=== PATIENT | male | born 1985 | race Caucasian/White ===

== ENCOUNTER 2023-12-08 09:27 | Emergency (ER) | payer SELFPAY ==
[2023-12-08 09:33] VITALS: BP 170/97; PULSE 76; TEMP 37; O2SAT 97; BMI 29.6
--- NOTE | 2023-12-08 09:59 | ED.GENADUL1 ---
HPI HPI - General Adult General Chief complaint: Abdominal Pain Stated complaint: ABDOMINAL PAIN/ DIZZINESS Time Seen by Provider: 12/08/23 09:32 Source: patient Mode of arrival: walk-in Limitations: no limitations History of Present Illness HPI narrative: Patient presents to ED complaining of mild abdominal pain Nausea vomiting and diarrhea. He states he lives at a homeless long-term and the cook was recently fired. He states the cook did not cook well and 2 days ago he ate raw chicken. He states ever since then he has had some abdominal pain diarrhea and not feeling well. 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 Denies suicidal ideation. He does have a sunburn because he states he is not allowed in the long-term during the day. Alert o x 3. No acute distress. No history of abdominal surgeries. Related Data Previous Rx's ?Medication ?Instructions ?Recorded ciprofloxacin HCl 500 mg tablet 500 mg PO BID 3 days #6 tabs 12/08/23 (Cipro) Allergies Allergy/AdvReac Type Severity Reaction Status Date / Time oxycodone AdvReac Intermediate Rash Verified 12/08/23 09:32 Opioid HPI Opioid Management Most Recent Opioid Data: Last Pain Scale 5 12/08/23 10:31 Last MAR Pain Assessment 12/08/23 10:31 Review of Systems ROS Status of ROS 10 or more systems reviewed and unremarkable except as noted in history and below Exam Narrative Exam Narrative: Time Seen: [] Vital Signs: [Per nurse's notes.] General: [Alert] Skin: [Warm, dry, no rash.] Head: [Normocephalic, atraumatic.] Neck: [Supple, trachea midline.] Eye: [Pupils are equal, round and reactive to light, extraocular movements are intact, normal conjunctiva.] Ears, nose, mouth and throat: oral mucosa moist. Cardiovascular: [Regular rate and rhythm, no murmur.] Respiratory: [Lungs are clear to auscultation, respirations are non-labored, breath sounds are equal.] Chest wall: [No tenderness, no deformity.] Gastrointestinal: [Soft, Mild epigastric tenderness, non distended, normal bowel sounds.] MSK: 5 out of 5 muscle strength x 4 extremities no calf pain or edema Lymphatics: [No lymphadenopathy.] Psychiatric: [Cooperative, appropriate mood & affect.] Neurological: [Alert and oriented to person, place, time, and situation, no focal neurological deficit observed.] Constitutional Vital Signs, click to edit/add: Last Vital Signs Temp 98.6 F 12/08/23 09:33 Pulse 88 12/08/23 12:05 Resp 16 12/08/23 12:05 BP 163/91 H 12/08/23 12:05 Pulse Ox 99 12/08/23 12:05 O2 Del Method Room Air 12/08/23 12:05 Course Vital Signs Vital signs: Vital Signs Temperature 98.6 F 12/08/23 09:33 Pulse Rate 76 12/08/23 09:33 Respiratory Rate 16 12/08/23 09:33 Blood Pressure 170/97 H 12/08/23 09:33 Pulse Oximetry 97 12/08/23 09:33 Oxygen Delivery Method Room Air 12/08/23 09:33 Temperature 98.6 F 12/08/23 09:33 Pulse Rate 88 12/08/23 12:05 Respiratory Rate 16 12/08/23 12:05 Blood Pressure 163/91 H 12/08/23 12:05 Pulse Oximetry 99 12/08/23 12:05 Oxygen Delivery Method Room Air 12/08/23 12:05 Medical Decision Making MDM Narrative Medical decision making narrative: Patient's labs are negative for acute and a slightly elevated white blood cell count. Patient declined a CAT scan abdomen pelvis. His abdomen is soft and only mildly tender I think this is appropriate for now. Given the fact that he had possibly undercooked chicken I will place him on 3 days worth of Cipro for possible infection. Most likely a gastroenteritis. Return to ED if worsening symptoms. Patient expresses understanding of care plan Differential Diagnosis Differential Diagnosis: Gastroenteritis, food poisoning, pancreatitis, electrolyte abnormality Medical Records Medical records reviewed: Yes I reviewed the patient's medical records Lab Data Lab results reviewed: Yes I reviewed the patient's lab results Labs: Lab Results 12/08/23 12/08/23 Range/Units 10:18 11:24 WBC 14.5 H (4.0-11.0) 10^3/uL RBC 4.85 (4.70-6.10) 10^6/uL Hgb 15.4 (14.0-18.0) g/dL Hct 46.2 (42.0-54.0) % MCV 95.3 H (80.0-94.0) fL MCH 31.8 (25.9-34.0) pg MCHC 33.3 (29.9-35.2) g/dL RDW 12.9 (11.0-15.0) % Plt Count 192 (150-450) 10^3/uL MPV 12.8 (9.5-13.5) fL Neut % (Auto) 81.5 H (43.0-75.0) % Lymph % (Auto) 11.3 L (20.5-60.0) % [place] % (Auto) 5.9 (1.7-12.0) % Eos % (Auto) 0.5 L (0.9-7.0) % Baso % (Auto) 0.5 (0.2-2.0) % Neut # (Auto) 11.8 H (1.4-6.5) 10^3/uL Lymph # (Auto) 1.6 (1.2-3.8) 10^3/uL [place] # (Auto) 0.9 H (0.3-0.8) 10^3/uL Eos # (Auto) 0.1 (0.0-0.7) 10^3/uL Baso # (Auto) 0.1 (0.0-0.1) 10^3/uL Abs Immat Gran (auto) 0.04 H (0.00-0.03) 10^3/uL Imm/Tot Granulo (auto) 0.3 (0.0-0.5) % Sodium 138 (136-145) mmol/L Potassium 4.0 (3.5-5.1) mmol/L Chloride 103 (98-107) mmol/L Carbon Dioxide 29.5 (21.0-32.0) mmol/L Anion Gap 9.5 BUN 10.0 (7.0-18.0) mg/dL Creatinine 0.97 (0.70-1.30) mg/dL Est GFR ( Amer) >60 (>=60) Est GFR (Non-Af Amer) >60 (>=60) BUN/Creatinine Ratio 10.3 Glucose 98 (74-106) mg/dL Calcium 9.2 (8.5-10.1) mg/dL Total Bilirubin 0.5 (0.2-1.0) mg/dL AST 24 (15-37) U/L ALT 48 (16-63) U/L Alkaline Phosphatase 69 (46-116) U/L Total Protein 7.3 (6.4-8.2) g/dL Albumin 3.6 (3.4-5.0) g/dL Globulin 3.7 g/dL Albumin/Globulin Ratio 1.0 Lipase 43.0 (16.0-77.0) U/L Urine Color Yellow (YELLOW) Urine Clarity Clear (CLEAR) Urine pH 6.5 (5.0-9.0) Ur Specific [place] 1.020 (1.005-1.025) Urine Protein Negative (NEG/TRACE) mg/dL Urine Glucose (UA) Negative (NEGATIVE) mg/dL Urine Ketones Negative (NEGATIVE) mg/dL Urine Occult Blood Negative (NEGATIVE) Urine Nitrite Negative (NEGATIVE) Urine Bilirubin Negative (NEGATIVE) Urine Urobilinogen 0.2 (0.2-1.0) EU/dL Ur Leukocyte Esterase Negative (NEGATIVE) Discharge Plan Discharge Stand Alone Forms: Portal Instructions Chief Complaint: Abdominal Pain Clinical Impression: Gastroenteritis Patient Disposition: Home, Self-Care Time of Disposition Decision: 11:51 Condition: Good Mode of Transportation: Private Vehicle Prescriptions / Home Meds: New ciprofloxacin HCl [Cipro] 500 mg tablet 500 mg PO BID 3 Days Qty: 6 0RF Print Language: Citizen [place] Instructions: Gastroenteritis (ED) Referrals: Physician,Non-Staff, MD [Primary Care Provider] - 1 week Discharge Date/Time: 12/08/23 12:06
[2023-12-08] MEDS: ONDANSETRON PF 4 MG/2 ML VIAL IV (10:21)
[2023-12-08] MEDS: 0.9 % SODIUM CHLORIDE 1,000 ML 999 ML IV (10:21)
[2023-12-08 10:30] LABS: Basophils Absolute Auto 0.1 10^3/uL (0.0-0.1); Basophils Percent Auto 0.5 % (0.2-2.0); Eosinophils Absolute Auto 0.1 10^3/uL (0.0-0.7); Eosinophils Percent Auto 0.5 % (0.9-7.0); Hematocrit 46.2 % (42.0-54.0); Hemoglobin 15.4 g/dL (14.0-18.0); Immature Granulocytes Abs Auto 0.04 10^3/uL (0.00-0.03); Immature Granulocytes Pct Auto 0.3 % (0.0-0.5); Lymphocytes Absolute Auto 1.6 10^3/uL (1.2-3.8); Lymphocytes Percent Auto 11.3 % (20.5-60.0); Mean Corpuscular HGB Conc 33.3 g/dL (29.9-35.2); Mean Corpuscular Hemoglobin 31.8 pg (25.9-34.0); Mean Corpuscular Volume 95.3 fL (80.0-94.0); Mean Platelet Volume 12.8 fL (9.5-13.5); Monocytes Absolute Auto 0.9 10^3/uL (0.3-0.8); Monocytes Percent Auto 5.9 % (1.7-12.0); Neutrophils Absolute Auto 11.8 10^3/uL (1.4-6.5); Neutrophils Percent Auto 81.5 % (43.0-75.0); Platelet Count 192 10^3/uL (150-450); Red Blood Count 4.85 10^6/uL (4.70-6.10); Red Cell Distribution Width 12.9 % (11.0-15.0); White Blood Count 14.5 10^3/uL (4.0-11.0)
[2023-12-08] MEDS: KETOROLAC TROMETHAMINE 30 MG/ML VIAL 15 MG IVP (10:31)
[2023-12-08 10:53] LABS: Alanine Aminotransferase 48 U/L (16-63); Albumin Level 3.6 g/dL (3.4-5.0); Alkaline Phosphatase 69 U/L (46-116); Anion Gap 9.5; Aspartate Amino Transferase 24 U/L (15-37); BUN Creatinine Ratio 10.3; Bilirubin Total 0.5 mg/dL (0.2-1.0); Calcium 9.2 mg/dL (8.5-10.1); Carbon Dioxide 29.5 mmol/L (21.0-32.0); Chloride 103 mmol/L (98-107); Estimated GFR (African America >60 (>=60); Estimated GFR (Non-African Ame >60 (>=60); Globulin 3.7 g/dL; Glucose 98 mg/dL (74-106); Sodium 138 mmol/L (136-145); Total Protein 7.3 g/dL (6.4-8.2)
[2023-12-08 11:38] LABS: Bilirubin Urine NEGATIVE (NEGATIVE); Blood Urine NEGATIVE (NEGATIVE); Clarity Urine CLEAR (CLEAR); Color Urine YELLOW (YELLOW); Glucose Urine UA NEGATIVE (NEGATIVE); Ketones Urine NEGATIVE (NEGATIVE); Leukocyte Esterase Urine NEGATIVE (NEGATIVE); Nitrite Urine NEGATIVE (NEGATIVE); Protein Urine NEGATIVE (NEG/TRACE); Urobilinogen Urine 0.2 EU/dL (0.2-1.0); pH Urine 6.5 (5.0-9.0)
[2023-12-08 11:44] LABS: Urine Microscopic Indicated NO
[2023-12-08 12:05] VITALS: BP 163/91; PULSE 88; O2SAT 99
== END 2023-12-08 12:06 | disposition home or self-care (01) ==
PROVIDERS: Emergency Provider Emergency Medicine
DX: K52.9 Noninfective gastroenteritis and colitis, unspecified (principal); Z59.01 Sheltered homelessness
CPT/HCPCS: 36415; 80053; 81003; 83690; 85025; 96361; 96374; 96375; 99284; J1885; J2405

== ENCOUNTER 2023-12-21 02:25 | Emergency (ER) | payer SELFPAY ==
[2023-12-21 02:31] VITALS: BP 162/98; PULSE 87; TEMP 37.1; O2SAT 96; BMI 29.6
--- NOTE | 2023-12-21 03:01 | CT_ITS ---
The [address] [address] Patient Name: CHRISTELLE KAN MRN: [id number] date: 1985 Sex: M Assigned Patient Location: ER Current Patient Location: Accession/Order Number: [id number] Exam Date: 12/21/2023 03:22 Report Date: 12/21/2023 06:01 At the request of: JOEY MARKER Procedure: CT abdomen pelvis w con EXAM: CT abdomen pelvis w con HISTORY: UPPER ABD PAIN, HX ETOH COMPARISON: None. TECHNIQUE: Axial CT images through the abdomen and pelvis were obtained after the intravenous administration of contrast. Coronal and sagittal reformats were obtained. Dose reduction techniques were achieved by using automated exposure control and/or adjustment of mA and/or kV according to patient size and/or use of iterative reconstruction technique. FINDINGS: The visualized portions of the lung bases are clear. Abdomen: The liver and spleen appear within normal limits. There is no intra or extrahepatic biliary duct dilatation. The gallbladder is unremarkable. There are a few subcentimeter hypodensities in the kidneys that are too small to characterize by CT size criteria. There is a left renal cyst. There is an indeterminate right renal cystic structure measuring up to 1.5 x 1.4 cm (series 3, image 63). There are bilateral nonobstructive renal calculi measuring up to 0.4 cm on the right. Liquid stool is seen throughout the colon without evidence of bowel obstruction. Otherwise, the pancreas, adrenal glands, and bowel loops, including the appendix, are unremarkable. There is no mesenteric or retroperitoneal lymphadenopathy. Pelvis: The bladder and rectum are unremarkable. There is no iliac or inguinal lymphadenopathy. There is mild atherosclerotic disease. Bone windows show no aggressive osseous lesions. CT/CT abdomen pelvis w con IMPRESSION: 1. Liquid stool throughout the colon, in keeping with diarrhea. 2. Normal appendix. 3. Indeterminate right renal cystic structure measuring up to 1.5 cm. This could be further evaluated with a nonemergent outpatient ultrasound examination if clinically indicated. 4. Bilateral nonobstructive renal calculi. Electronically authenticated by: Ellis ANTONY Date: 12/21/2023 06:01
--- NOTE | 2023-12-21 03:03 | ED.ABDPAIN1 ---
HPI - Abdominal Pain General Chief Complaint: Abdominal Pain Stated Complaint: ABD PAIN Time Seen by Provider: 12/21/23 02:29 Source: patient Mode of arrival: walk-in Limitations: no limitations History of Present Illness HPI narrative: This 38-year-old male who was seen in this emergency department on 12/08/2023 for generalized abdominal pain with nausea and vomiting after eating raw chicken presents for evaluation of ongoing abdominal pain with nausea and dyspepsia. The patient states at that time he had eaten raw chicken and it was thought that he had symptoms related to that. He was discharged home with a prescription for Cipro for several days. He declined a CT scan or ultrasound at that time because he did not have insurance. He states he got insurance yesterday and is now here for more thorough workup. He has had ongoing nausea with upper abdominal pain and intermittent diarrhea. He has had several episodes of vomiting but nothing like he was having when he was seen here on the third. He admits that he occasionally drinks alcohol, sometimes in excess. He states he was a heavy drinker many years ago. He also admits to tobacco use. He denies any weight loss, fever or black tarry stools. Related Data Previous Rx's ?Medication ?Instructions ?Recorded ciprofloxacin HCl 500 mg tablet 500 mg PO BID 3 days #6 tabs 12/08/23 (Cipro) Allergies Allergy/AdvReac Type Severity Reaction Status Date / Time oxycodone AdvReac Intermediate Rash Verified 12/21/23 02:35 Review of Systems ROS Status of ROS 10 or more systems reviewed and unremarkable except as noted in history and below Exam Narrative Exam Narrative: Vital signs and Nursing Notes reviewed: Patient is afebrile with a normal pulse, blood pressure is elevated at 160/98, he is not hypoxic with pulse ox of 96% on room air General: Awake, alert, oriented, no acute distress, lying comfortably on the stretcher, smiling, interacting with his female friend, no respiratory distress, no active vomiting HEENT: Normocephalic atraumatic, mucous membranes are moist and pink, eyes are clear, normal conjunctiva, vision is grossly intact, no scleral icterus Neck: Supple, no meningeal signs, no anterior or posterior cervical lymphadenopathy Chest: Lungs are clear to auscultation with good air entry, there is no wheezing rhonchi or rales appreciated no accessory muscle use, patient is speaking in complete sentences-no chest wall tenderness to palpation CVS: Regular rate and rhythm S1-S2, no murmurs rubs or gallops, pulses are brisk and equal bilaterally ABD: Soft, nondistended, mild epigastric tenderness to deep palpation, no rebound guarding or rigidity noted, no right lower quadrant or left lower quadrant tenderness, no pulsatile masses, negative Harris's and McBurney's point tenderness Extremities: Moving all extremities, no lower extremity tenderness or swelling noted, negative Homans' sign, pulses are brisk and equal bilaterally Skin: Normal in appearance without rash,pallor, petechiae or purpura Neuro: No focal deficits Constitutional Vital Signs, click to edit/add: Last Vital Signs Temp 98.8 F 12/21/23 02:31 Pulse 87 12/21/23 02:31 Resp 18 12/21/23 02:31 BP 162/98 H 12/21/23 02:31 Pulse Ox 96 12/21/23 02:31 O2 Del Method Room Air 12/21/23 02:31 Course Vital Signs Vital signs: Vital Signs Temperature 98.8 F 12/21/23 02:31 Pulse Rate 87 12/21/23 02:31 Respiratory Rate 18 12/21/23 02:31 Blood Pressure 162/98 H 12/21/23 02:31 Pulse Oximetry 96 12/21/23 02:31 Oxygen Delivery Method Room Air 12/21/23 02:31 Temperature 98.8 F 12/21/23 02:31 Pulse Rate 87 12/21/23 02:31 Respiratory Rate 18 12/21/23 02:31 Blood Pressure 162/98 H 12/21/23 02:31 Pulse Oximetry 96 12/21/23 02:31 Oxygen Delivery Method Room Air 12/21/23 02:31 MDM - Abdominal Pain MDM Narrative Medical decision making narrative: This 38-year-old male with a history of heavy alcohol use in the past who now occasionally drinks alcohol and was seen here on December 07 for abdominal pain with nausea and vomiting presents for evaluation of ongoing abdominal discomfort. He points to the periumbilical area as area of greatest discomfort. He states he has intermittent pain, nausea and diarrhea. He has not had a fever. He has not had any bloody stools or weight loss. He states that he was offered CT scanning and ultrasound when he was here in the past but did not have insurance until yesterday so he declined at that time. Patient's vital signs are stable with the exception of elevated blood pressure at 162/98. An IV was placed and he was medicated with IV fluids, Zofran and Pepcid. Routine labs are reviewed. His white count has improved and is now 11 from 14. Hemoglobin is stable. Electrolytes are normal. BUN and creatinine are normal. LFTs are normal, lipase is mildly elevated at 100. CT scan of the abdomen pelvis which is included in the body of this report was discussed with the patient and he was given a copy for his records. It shows diarrheal illness with no sign of obstruction, normal gallbladder, pancreas spleen and kidney stones. The patient was aware that he had kidney stones. He is feeling better after being medicated emergency department. He has slept for several hours. Upon awakening he has not nauseated any longer. He will be discharged home with a prescription for Zofran, Bentyl and Pepcid with recommendation for close follow-up with outpatient family medicine. He states he is currently living in the [facility] and will seek medical care there. Medical Records Medical records narrative: The [address] [address] [address] Scan Report Signed Patient: CHRISTELLE KAN MR#: [id number] : 1985 Acct:[id number] Age/Sex: 38 / M ADM Date: 12/21/23 Loc: ER Attending Dr: Edward Physician: Jie Carreon Date of Service: 12/21/23 Procedure(s): CT abdomen pelvis w con Accession Number(s): [id number] cc: Physician,Non-Staff M.D.~ [facility] [place] [id number] Patient Name: CHRISTELLE KAN MRN: [id number] date: 1985 Sex: M Assigned Patient Location: ER Current Patient Location: ER Accession/Order Number: [id number] Exam Date: 12/21/2023 03:22 Report Date: 12/21/2023 06:01 At the request of: JIE CARREON Procedure: CT abdomen pelvis w con EXAM: CT abdomen pelvis w con HISTORY: UPPER ABD PAIN, HX ETOH COMPARISON: None. TECHNIQUE: Axial CT images through the abdomen and pelvis were obtained after the intravenous administration of contrast. Coronal and sagittal reformats were obtained. Dose reduction techniques were achieved by using automated exposure control and/or adjustment of mA and/or kV according to patient size and/or use of iterative reconstruction technique. FINDINGS: The visualized portions of the lung bases are clear. Abdomen: The liver and spleen appear within normal limits. There is no intra or extrahepatic biliary duct dilatation. The gallbladder is unremarkable. There are a few subcentimeter hypodensities in the kidneys that are too small to characterize by CT size criteria. There is a left renal cyst. There is an indeterminate right renal cystic structure measuring up to 1.5 x 1.4 cm (series 3, image 63). There are bilateral nonobstructive renal calculi measuring up to 0.4 cm on the right. Liquid stool is seen throughout the colon without evidence of bowel obstruction. Otherwise, the pancreas, adrenal glands, and bowel loops, including the appendix, are unremarkable. There is no mesenteric or retroperitoneal lymphadenopathy. Pelvis: The bladder and rectum are unremarkable. There is no iliac or inguinal lymphadenopathy. There is mild atherosclerotic disease. Bone windows show no aggressive osseous lesions. CT/CT abdomen pelvis w con IMPRESSION: 1. Liquid stool throughout the colon, in keeping with diarrhea. 2. Normal appendix. 3. Indeterminate right renal cystic structure measuring up to 1.5 cm. This could be further evaluated with a nonemergent outpatient ultrasound examination if clinically indicated. 4. Bilateral nonobstructive renal calculi. Electronically authenticated by: Ellis ANTONY Date: 12/21/2023 06:01 Lab Data Labs: Lab Results 12/21/23 Range/Units 02:37 WBC 11.3 H (4.0-11.0) 10^3/uL RBC 4.72 (4.70-6.10) 10^6/uL Hgb 15.4 (14.0-18.0) g/dL Hct 46.1 (42.0-54.0) % MCV 97.7 H (80.0-94.0) fL MCH 32.6 (25.9-34.0) pg MCHC 33.4 (29.9-35.2) g/dL RDW 13.9 (11.0-15.0) % Plt Count 152 (150-450) 10^3/uL MPV 12.6 (9.5-13.5) fL Neut % (Auto) 61.2 (43.0-75.0) % Lymph % (Auto) 27.6 (20.5-60.0) % [place] % (Auto) 6.6 (1.7-12.0) % Eos % (Auto) 2.5 (0.9-7.0) % Baso % (Auto) 0.9 (0.2-2.0) % Neut # (Auto) 6.9 H (1.4-6.5) 10^3/uL Lymph # (Auto) 3.1 (1.2-3.8) 10^3/uL [place] # (Auto) 0.7 (0.3-0.8) 10^3/uL Eos # (Auto) 0.3 (0.0-0.7) 10^3/uL Baso # (Auto) 0.1 (0.0-0.1) 10^3/uL Abs Immat Gran (auto) 0.14 H (0.00-0.03) 10^3/uL Imm/Tot Granulo (auto) 1.2 H (0.0-0.5) % Sodium 137 (136-145) mmol/L Potassium 3.6 (3.5-5.1) mmol/L Chloride 104 (98-107) mmol/L Carbon Dioxide 27.2 (21.0-32.0) mmol/L Anion Gap 9.4 BUN 16.0 (7.0-18.0) mg/dL Creatinine 1.07 (0.70-1.30) mg/dL Est GFR ( Amer) >60 (>=60) Est GFR (Non-Af Amer) >60 (>=60) BUN/Creatinine Ratio 15.0 Glucose 105 (74-106) mg/dL Calcium 8.5 (8.5-10.1) mg/dL Total Bilirubin 0.4 (0.2-1.0) mg/dL AST 27 (15-37) U/L ALT 58 (16-63) U/L Alkaline Phosphatase 71 (46-116) U/L Total Protein 7.0 (6.4-8.2) g/dL Albumin 3.4 (3.4-5.0) g/dL Globulin 3.6 g/dL Albumin/Globulin Ratio 0.9 Lipase 100.0 H (16.0-77.0) U/L Discharge Plan Discharge Stand Alone Forms: Portal Instructions Chief Complaint: Abdominal Pain Clinical Impression: Diarrhea, Gastritis Patient Disposition: Home, Self-Care Time of Disposition Decision: 06:19 Condition: Good Prescriptions / Home Meds: No Action ciprofloxacin HCl [Cipro] 500 mg tablet 500 mg PO BID 3 Days Qty: 6 0RF Print Language: [place] Instructions: Gastritis (ED), Diet for Stomach Ulcers and Gastritis (ED), Acute Diarrhea (ED) Referrals: Physician,Non-Staff, MD [Primary Care Provider] - 1 week
[2023-12-21 03:23] LABS: Basophils Absolute Auto 0.1 10^3/uL (0.0-0.1); Basophils Percent Auto 0.9 % (0.2-2.0); Eosinophils Absolute Auto 0.3 10^3/uL (0.0-0.7); Eosinophils Percent Auto 2.5 % (0.9-7.0); Hematocrit 46.1 % (42.0-54.0); Hemoglobin 15.4 g/dL (14.0-18.0); Immature Granulocytes Abs Auto 0.14 10^3/uL (0.00-0.03); Immature Granulocytes Pct Auto 1.2 % (0.0-0.5); Lymphocytes Absolute Auto 3.1 10^3/uL (1.2-3.8); Lymphocytes Percent Auto 27.6 % (20.5-60.0); Mean Corpuscular HGB Conc 33.4 g/dL (29.9-35.2); Mean Corpuscular Hemoglobin 32.6 pg (25.9-34.0); Mean Corpuscular Volume 97.7 fL (80.0-94.0); Mean Platelet Volume 12.6 fL (9.5-13.5); Monocytes Absolute Auto 0.7 10^3/uL (0.3-0.8); Monocytes Percent Auto 6.6 % (1.7-12.0); Neutrophils Absolute Auto 6.9 10^3/uL (1.4-6.5); Neutrophils Percent Auto 61.2 % (43.0-75.0); Platelet Count 152 10^3/uL (150-450); Red Blood Count 4.72 10^6/uL (4.70-6.10); Red Cell Distribution Width 13.9 % (11.0-15.0); White Blood Count 11.3 10^3/uL (4.0-11.0)
[2023-12-21 03:31] LABS: Alanine Aminotransferase 58 U/L (16-63); Albumin Globulin Ratio 0.9; Albumin Level 3.4 g/dL (3.4-5.0); Alkaline Phosphatase 71 U/L (46-116); Anion Gap 9.4; Aspartate Amino Transferase 27 U/L (15-37); Bilirubin Total 0.4 mg/dL (0.2-1.0); Calcium 8.5 mg/dL (8.5-10.1); Carbon Dioxide 27.2 mmol/L (21.0-32.0); Chloride 104 mmol/L (98-107); Estimated GFR (African America >60 (>=60); Estimated GFR (Non-African Ame >60 (>=60); Globulin 3.6 g/dL; Glucose 105 mg/dL (74-106); Potassium 3.6 mmol/L (3.5-5.1); Sodium 137 mmol/L (136-145)
[2023-12-21] MEDS: FAMOTIDINE/PF 20 MG/2 ML VIAL IV (03:41)
[2023-12-21] MEDS: ONDANSETRON PF 4 MG/2 ML VIAL IV (03:41)
[2023-12-21] MEDS: 0.9 % SODIUM CHLORIDE 1,000 ML 1000 ML IV (03:41)
[2023-12-21] MEDS: KETOROLAC TROMETHAMINE 30 MG/ML VIAL IVP (03:41)
== END 2023-12-21 06:33 | disposition home or self-care (01) ==
PROVIDERS: Emergency Provider Emergency Medicine
DX: K29.70 Gastritis, unspecified, without bleeding (principal); R19.7 Diarrhea, unspecified
CPT/HCPCS: 36415; 74177; 80053; 83690; 85025; 96361; 96374; 96375; 99284; J1885; J2405; Q9967